=== PATIENT | female | born 1960 | race Caucasian/White ===

== ENCOUNTER 2017-10-27 10:36 | Emergency (ER) | payer BC, MEDICAID ==
[2017-10-27] MEDS ORDERED: Albuterol/Ipratropium 3.0-0.5 MG/3 ML Neb Soln NEB ONE (11:15)
--- NOTE | 2017-10-27 12:41 | EDM.PDOC ---
ED HPI GENERAL MEDICAL PROBLEM - General Chief Complaint: Respiratory Problem Stated Complaint: RESPIRATORY ISSUES Time Seen by Provider: 10/27/17 10:52 Source of Information: Reports: Patient, RN Notes Reviewed History Limitations: Reports: No Limitations - History of Present Illness INITIAL COMMENTS - FREE TEXT/NARRATIVE: The patient states that she developed cold-like symptoms, including nasal congestion and a headache, this past , 10/23/2017. She then developed dyspnea, made worse if she is supine, and a cough that is worse at night. She had a subjective fever on 10/25/21. She states that she took Gina- Quail Plus and Advil Cold & Sinus, without any relief. The patient states that she went to the walk-in clinic today, but was sent here , for reasons unclear. The patient states that she has a PCP, but does not recall their name. 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: - Past Surgical History HEENT Surgical History: Reports: Oral Surgery (wisdom teeth extraction) GI Surgical History: Reports: Other (See Below) (Hemorrhoidectomy) Social & Family History - Tobacco Use Smoking Status *Q: Current Every Day Smoker Years of Tobacco use: 41 Packs/Tins Daily: 1 Packs/Tins Daily Comment: Down from 2 ppd Smoking Cessation Information Provided To Patient: Yes - Caffeine Use Caffeine Use: Reports: Coffee - Alcohol Use Alcohol Use History: Yes Alcohol Use Frequency: Socially - Recreational Drug Use Recreational Drug Use: No - Living Situation & Occupation Living situation: Reports: , with Family (Daughter + 2 grandchildren) 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 ED EXAM, GENERAL - Physical Exam Exam: See Below Exam Limited By: No Limitations General Appearance: Alert, WD/WN, No Apparent Distress Eye Exam: Bilateral Eye: EOMI, Normal Inspection Ears: Normal External Exam, Normal Canal, Hearing Grossly Normal, Normal TMs Nose: Normal Inspection, No Blood, Other (Mild bilateral nasal mucosa edema) Throat/Mouth: Normal Inspection, Normal Lips, Normal Teeth, Normal Gums, Normal Oropharynx, Normal Voice, No Airway Compromise Head: Atraumatic, Normocephalic Neck: Normal Inspection, Full Range of Motion. No: Lymphadenopathy (L), Lymphadenopathy (R) Respiratory/Chest: No Respiratory Distress, Normal Breath Sounds, No Accessory Muscle Use, Wheezing (expiratory ). No: Crackles, Rhonchi Cardiovascular: Normal Peripheral Pulses, Regular Rate, Rhythm, No Edema, No Gallop, No JVD, No Murmur, No Rub Peripheral Pulses: 4+: Radial (L), Radial (R) GI/Abdominal: Normal Bowel Sounds, Soft, Non-Tender, No Organomegaly, No Distention, No Abnormal Bruit, No Mass (Female) Exam: Deferred Rectal (Female) Exam: Deferred Back Exam: Normal Inspection, Full Range of Motion, NT Extremities: Normal Inspection, Normal Range of Motion, No Pedal Edema, Normal Capillary Refill Neurological: Alert, Oriented, Normal Cognition, No Motor/Sensory Deficits Psychiatric: Normal Affect Skin Exam: Warm, Dry, Intact, Normal Color, No Rash Course - Vital Signs Last Recorded V/S: Last Vital Signs Temp 36.8 C 10/27/17 10:42 Pulse 90 10/27/17 10:42 Resp 16 10/27/17 10:42 BP 117/78 10/27/17 10:42 Pulse Ox 94 L 10/27/17 11:40 - Orders/Labs/Meds Labs: Laboratory Tests 10/27/17 10/27/17 10/27/17 Range/Units 11:05 11:20 11:20 WBC 5.78 (3.98-10.04) K/mm3 RBC 4.95 (3.98-5.22) M/mm3 Hgb 15.4 (11.2-15.7) gm/L Hct 46.7 H (34.1-44.9) % MCV 94.3 (79.4-94.8) fl MCH 31.1 (25.6-32.2) pg MCHC 33.0 (32.2-35.5) g/dl RDW Std Deviation 47.8 H (36.4-46.3) fL Plt Count 206 (182-369) K/mm3 MPV 10.4 (9.4-12.3) fl Neutrophils % (Manual) 61 H (40-60) % Band Neutrophils % 0 (0-10) % Lymphocytes % (Manual) 36 (20-40) % Atypical Lymphs % 0 % Monocytes % (Manual) 3 (2-10) % Eosinophils % (Manual) 0 L (0.7-5.8) % Basophils % (Manual) 0 L (0.1-1.2) Platelet Estimate Adequate RBC Morph Comment Normal D-Dimer, Quantitative 0.48 (0.19-0.50) mg/L Puncture Site Rt radial ABG pH 7.41 (7.35-7.45) ABG pCO2 45.2 H (35.0-45.0) mmHg ABG pO2 80.0 (80.0-100.0) mmHg ABG HCO3 27.7 H (22.0-26.0) meq/L ABG O2 Saturation 92.7 L (96.0-97.0) % ABG Base Excess 2.9 H (-2-2.0) Bernard Test Positive FiO2 0.00 L (21.00-100.00) % Sodium (136-145) mEq/L Potassium (3.5-5.1) mEq/L Chloride (98-107) mEq/L Carbon Dioxide (21-32) mEq/L Anion Gap (5-15) BUN (7-18) mg/dL Creatinine (0.55-1.02) mg/dL Est Cr Clr Drug Dosing mL/min Estimated GFR (MDRD) (>60) mL/min BUN/Creatinine Ratio (14-18) Glucose (74-106) mg/dL Lactic Acid (0.4-2.0) mmol/L Calcium (8.5-10.1) mg/dL Total Bilirubin (0.2-1.0) mg/dL AST (15-37) U/L ALT (14-59) U/L Alkaline Phosphatase (46-116) U/L NT-Pro-B Natriuret Pep (0-125) pg/mL Total Protein (6.4-8.2) g/dl Albumin (3.4-5.0) g/dl Globulin gm/dL Albumin/Globulin Ratio (1-2) 10/27/17 10/27/17 10/27/17 Range/Units 11:20 11:20 11:20 WBC (3.98-10.04) K/mm3 RBC (3.98-5.22) M/mm3 Hgb (11.2-15.7) gm/L Hct (34.1-44.9) % MCV (79.4-94.8) fl MCH (25.6-32.2) pg MCHC (32.2-35.5) g/dl RDW Std Deviation (36.4-46.3) fL Plt Count (182-369) K/mm3 MPV (9.4-12.3) fl Neutrophils % (Manual) (40-60) % Band Neutrophils % (0-10) % Lymphocytes % (Manual) (20-40) % Atypical Lymphs % % Monocytes % (Manual) (2-10) % Eosinophils % (Manual) (0.7-5.8) % Basophils % (Manual) (0.1-1.2) Platelet Estimate RBC Morph Comment D-Dimer, Quantitative (0.19-0.50) mg/L Puncture Site ABG pH (7.35-7.45) ABG pCO2 (35.0-45.0) mmHg ABG pO2 (80.0-100.0) mmHg ABG HCO3 (22.0-26.0) meq/L ABG O2 Saturation (96.0-97.0) % ABG Base Excess (-2-2.0) Bernard Test FiO2 (21.00-100.00) % Sodium 138 (136-145) mEq/L Potassium 4.0 (3.5-5.1) mEq/L Chloride 102 (98-107) mEq/L Carbon Dioxide 32 (21-32) mEq/L Anion Gap 8.0 (5-15) BUN 14 (7-18) mg/dL Creatinine 0.9 (0.55-1.02) mg/dL Est Cr Clr Drug Dosing 64.56 mL/min Estimated GFR (MDRD) > 60 (>60) mL/min BUN/Creatinine Ratio 15.6 (14-18) Glucose 121 H (74-106) mg/dL Lactic Acid 0.7 (0.4-2.0) mmol/L Calcium 8.8 (8.5-10.1) mg/dL Total Bilirubin 0.3 (0.2-1.0) mg/dL AST 14 L (15-37) U/L ALT 17 (14-59) U/L Alkaline Phosphatase 66 (46-116) U/L NT-Pro-B Natriuret Pep 131 H (0-125) pg/mL Total Protein 7.2 (6.4-8.2) g/dl Albumin 3.6 (3.4-5.0) g/dl Globulin 3.6 gm/dL Albumin/Globulin Ratio 1.0 (1-2) Meds: Medications Discontinued Medications Generic Name Dose Route Start Last Admin Trade Name Maddi PRN Reason Stop Dose Admin Albuterol/Ipratropium 3 ml 10/27/17 11:15 10/27/17 11:40 Duoneb 3.0-0.5 Mg/3 Ml NEB 10/27/17 11:16 3 ml ONETIME ONE Administration Prednisone 60 mg 10/27/17 12:50 10/27/17 13:14 Prednisone PO 10/27/17 12:51 60 mg ONETIME STA Administration - Re-Assessments/Exams Free Text/Narrative Re-Assessment/Exam: 10/27/17 12:30 2-view chest radiograph reviewed. Cardiac silhouette is within normal limits. No pulmonary vascular congestion. No pleural effusions. No focal infiltrate. No pneumothorax. Hyperinflation and bilateral diaphragmatic flattening, consistent with COPD, noted. Mild scoliosis incidentally noted. Formal read per the Radiologist pending. 10/27/17 12:49 The patient's lungs were auscultated following a DuoNeb. She has far fewer expiratory wheezes than she did earlier, although she states that she does not feel much better. Based on the patient's history, physical examination, including her auscultatory improvement following a DuoNeb, and chest x-ray results, I suspect that the patient has underlying COPD, causing hypoxemia. I believe that the patient is suffering from a COPD exacerbation, likely triggered by a viral URI. I explained to the patient that none of the above is diagnostic for COPD, that the diagnosis of COPD is made by pulmonary function tests, not history, chest x- ray, CT scan, or response to bronchodilators, and I am recommending referral to a [facility] in [place] not only for diagnosis, but optimal management as well. The patient stated that she would see the vocational case manager only if her insurance covered it. We discussed treatment options. The patient declined an offer for a metered- dose inhaler with space chamber, and declined an offer to be evaluated for supplemental oxygen. She agreed to the option of a short course of oral steroids. I explained to the patient that a course of steroids at this time will likely make her feel better fairly soon, however, there is a decreased long -term prognosis for patients with COPD treated with steroids for COPD exacerbations. She expressed understanding, but wanted to proceed with the prednisone anyway. She will therefore receive 60 mg here in the ED, and I will prescribe 20 mg a day for an additional 6 days, to complete a seven-day course. I find no evidence for a bacterial infection - she does not have a fever, elevated WBC count, or infiltrate on her chest x-ray - and I am therefore not recommending antibiotics at this time. Departure - Departure Time of Disposition: 13:03 Disposition: Home, Self-Care 01 Condition: Fair Clinical Impression: Shortness of breath - Discharge Information *PRESCRIPTION DRUG MONITORING PROGRAM REVIEWED*: Not Applicable *COPY OF PRESCRIPTION DRUG MONITORING REPORT IN PATIENT VANITA: Not Applicable Prescriptions: predniSONE [Prednisone] 1 tab PO DAILY #6 tablet Instructions: Shortness of Breath, Adult Referrals: PCP,None [Ordering Only Provider] - Davina Rojas MD [Ordering Only Provider] - Forms: ED Department Discharge Additional Instructions: You were seen in the emergency room for shortness of breath and cough, worse at night. Workup in the ER included blood work, an arterial blood gas, 2 sets of blood cultures, and a chest x-ray. Your oxygen saturation was found to be low, around 87% on room air, in the ER. Your chest x-ray had findings consistent with COPD, although no pneumonia. The remainder of your workup was unremarkable. Based on your history, physical examination, and chest x-ray results, it is MOST LIKELY that you have underlying COPD, which is responsible for your low oxygen level, and that you are currently experiencing a COPD exacerbation. You have been started on the steroid medicine prednisone. A prescription for prednisone has been sent to the [facility], located in the [place] store. Take one tablet daily, with food, starting tomorrow, 10/28/2017, as prescribed. An offer to prescribe an albuterol inhaler, as well as to evaluate you for supplemental oxygen, was made, but declined. Follow-up with the Servicer Dr. Davina Rojas at the next available appointment. If any other problems, please do not hesitate to return to the ER.
[2017-10-27] MEDS ORDERED: predniSONE 20 MG Tab PO STA (12:50)
--- NOTE | 2017-10-28 13:01 | CR ---
Chest: Two views of the chest were obtained. Comparison: No prior chest x-ray. Heart size and mediastinum are normal. Lung markings are slightly increased. Uncertain if this is acute or chronic. No alveolar densities are seen. Linear scar is noted within the left upper lung. Heart size and mediastinum are normal. Mild scoliosis is present within the spine. Impression: 1. Increased lung markings, uncertain if this represents chronic change or is acute, possibly bronchitis. 2. Other incidental findings. Diagnostic code #3
== END 2017-10-27 13:19 | disposition home or self-care (01) ==
LOC: JD.ED 10:36
DX: R06.02 Shortness of breath (principal); F17.210 Nicotine dependence, cigarettes, uncomplicated
CPT/HCPCS: 36415; 36600; 71046; 80053; 82803; 83605; 83880; 85007; 85027; 85379; 87040; 94640; 99285; A9270; J7620-GY